=== PATIENT | female | born 1935 | race Asian ===

== ENCOUNTER → 2017-08-29 | Outpatient (CLI) | payer BC ==
[~2017-08-29] MED LIST: AMLO-147 PO; ASCO500C7 PO; ASPI-535 PO; ATOR40TA68 PO; CALCIUM CALTRATE PO; ISOS30TA5 PO; LEVO25TA53 PO; LOSA1TAB20 PO; MELO-216 PO; MULT-860 PO
--- NOTE | 2017-08-29 21:32 | RADRPT ---
PROCEDURE: Right knee radiographs. CLINICAL INDICATION: Right knee pain. TECHNIQUE: Four views. Weight bearing. Frontal, lateral, oblique, and patellar view. COMPARISON: No prior studies are available for comparison. FINDINGS: There is no fracture or dislocation. There is no joint effusion. There are degenerative changes with osteophytes arising from all 3 joint compartment margins. There is medial joint compartment narrowing, subarticular sclerosis, and deformity. There is chondrocalcin osis. There is diffuse osteopenia. There is no lytic or blastic lesion. There is no radiopaque foreign body. IMPRESSION: 1. Severe degenerative change. 2. Chondrocalcinosis. 3. Diffuse osteopenia. RPTAT: QQ .Kj Hanley MD, MD Date Time Electronically viewed and signed by .Kj Hanley MD, on 08/29/2017 21:32 .R/
--- NOTE | 2017-08-30 06:06 | HKNOTE ---
DATE OF SERVICE: 08/29/2017 CHIEF COMPLAINT: Right knee pain. HISTORY OF PRESENT ILLNESS: This is an 81-year-old female who is complaining of severe pain in the right knee. The pain has been progressively worsening. She has difficulty ambulating. She has dif ficulty going up and down the stairs. She uses a walker for ambulation. She takes ibuprofen for pa in control. She denies any groin or back pain. The pain is constant. There are no alleviating fac tors. She has no other complaints. GAIT: Antalgic gait, reciprocal gait pattern. RIGHT KNEE EXAMINATION: Varus alignment, tender over the medial and lateral joint lines, 0 to 115 d egrees range of motion, stable to varus valgus stress, negative Shavon, negative anterior drawer, n egative posterior drawer, negative Pia. MOTOR STRENGTH: 5/5 hamstrings, quadriceps, tibialis anterior, gastrocsoleus. X-RAYS RIGHT KNEE: 4 views of the right knee demonstrate advanced tricompartmental osteoarthritis w ith [id number]-nh-uane arthritic changes of the medial compartment, marginal osteophytes, subchondral scle rosis. IMPRESSION: An 81-year-old female with advanced tricompartmental osteoarthritis. PLAN: We will request authorization for right total knee arthroplasty. She can take ibuprofen for pain control. She will follow up within 6 weeks for preoperative planning. Dictated By: IVORY MCCORD/DEONDRE Conf#: [id number] DID#: [id number]
== END | disposition home or self-care (01) ==
LOC: HKI 15:48
PROVIDERS: ATTEND Orthopaedic Surgery Adult Reconstructive Orthopaedic Surgery
DX: M17.11 Unilateral primary osteoarthritis, right knee (principal)
CPT/HCPCS: 73564; Z7500; G0463

== ENCOUNTER → 2017-12-04 | Outpatient (CLI) | END | disposition home or self-care (01) ==

== ENCOUNTER 2017-12-06 07:50 | Inpatient (IN) | END 2017-12-09 18:25 | disposition home health service (06) | DRG 470 ==

== ENCOUNTER → 2017-12-21 | Outpatient (CLI) | END | disposition home or self-care (01) ==

== ENCOUNTER → 2018-01-18 | Outpatient (CLI) | END | disposition home or self-care (01) ==

== ENCOUNTER → 2018-04-26 | Outpatient (CLI) | END | disposition home or self-care (01) ==

== ENCOUNTER → 2018-05-14 | Outpatient (CLI) | END | disposition home or self-care (01) ==

== ENCOUNTER → 2018-08-06 | Outpatient (CLI) | END | disposition home or self-care (01) ==

== ENCOUNTER 2018-08-15 05:44 | Inpatient (IN) | END 2018-08-17 18:49 | disposition home health service (06) | DRG 470 ==

== ENCOUNTER → 2018-08-27 | Outpatient (CLI) | END | disposition home or self-care (01) ==

== ENCOUNTER 2018-09-05 08:40 | Inpatient (IN) | END 2018-09-08 15:40 | disposition home or self-care (01) | DRG 372 ==

== ENCOUNTER 2018-09-12 09:13 | Inpatient (IN) | END 2018-09-24 17:07 | disposition home health service (06) | DRG 378 ==

== ENCOUNTER → 2018-09-28 | Outpatient (CLI) | END | disposition home or self-care (01) ==